=== PATIENT | female | born 1940 | race Caucasian/White ===

== ENCOUNTER → 2016-09-15 | Outpatient (CLI) | payer MEDICARE ==
--- NOTE | 2016-09-15 13:23 | BD ---
EXAMINATION TYPE: MG DEXA axial skeleton. DATE OF EXAM: 09/15/2016 10:54 AM COMPARISON: 09.03.2014 CLINICAL HISTORY: C50.911 OSTEOPENIA Z79.890 POST MENOPAUSAL W/HRT Height: 63.3 Weight: 130 FRAX RISK QUESTIONS: Alcohol (3 or more units per day): NO Family History (Parent hip fracture): NO Glucocorticoids (More than 3mos): NO (Ex: prednisone, prednisolone, methylprednisolone, dexamethasone, and hydrocortisone). History of Fracture in Adulthood: NO Secondary Osteoporosis: NO 1. Type 1 Diabetes: NO 2. Hyperthyroidism: NO 3. Menopause before 45: NO 4. Malnutrition: NO 5. Chronic liver disease: NO Rheumatoid Arthritis: NO Current Tobacco Use: NO RISK FACTORS HISTORY OF: Family History of Osteoporosis: NONE KNOWN Smoke tobacco: NO Drink Alcohol: SOCIAL Active: YES Diet low in dairy products/other sources of calcium: NO Postmenopausal woman: AT 59 YRS OLD Lost more than 2 inches in height since high school: NOT QUITE Adrenal Insufficiency: NO MEDICATIONS: Additional Medications: VITAMINS AND NASAL SPRAY, CALCIUM AND VIT D Additional History: HX OF BREAST CANCER, RT MASTECTOMY EXAM MEASUREMENTS: Bone mineral densitometry was performed using the [employer] System. Bone mineral density as measured about the Lumbar spine is: ----- L1-L4(G/cm2): 1.094 T Score Values are as follows: ----- L1: -1.4 ----- L2: -0.5 ----- L3: 0.3 ----- L4: -1.2 ----- L1-L4: -1.0 Bone mineral density has: Increased 2.6% since study of: 09.03.2014 Bone mineral density about the R hip (g/cm2): 0.906 Bone mineral density about the L hip (g/cm2): 0.955 T Score values are as follows: -----R Neck: -0.9 -----L Neck: -0.6 -----R Intertrochanter: -1.3 -----L Intertrochanter: -0.7 Bone mineral density has: Decreased -4.6% since study of: 09.03.2014 FRAX %'S: 9.2% CHANCE FOR A MAJOR OSTEOPOROTIC FX AND 1.5% FOR A HIP FX.....PROBABILITY OF FX IN 1 0 YRS TIME IMPRESSION: Osteopenia (T Score between -2.5 and -1 as noted by T score values There is slightly increased risk of fracture and the patient may be considered for treatment. Re-Screen 1-2 years. FOR L1 AND L4 OF LUMBAR SPINE AND RT HIP AT INTERTROCHANTER NOTE: T-SCORE=SD OF THE YOUNG ADULT MEAN.
== END | disposition home or self-care (01) ==
LOC: RADBDWWP 10:32
PROVIDERS: ATTEND Internal Medicine Hematology & Oncology
DX: M85.80 Other specified disorders of bone density and structure, unspecified site (principal); C50.911 Malignant neoplasm of unspecified site of right female breast; N95.1 Menopausal and female climacteric states; Z79.890 Hormone replacement therapy
CPT/HCPCS: 77080

== ENCOUNTER → 2017-03-28 | Outpatient (CLI) | payer MEDICARE ==
--- NOTE | 2017-04-04 13:46 | MM ---
Reason for exam: additional evaluation requested from prior study. Last mammogram was performed 1 year ago. History: Patient is postmenopausal, has history of breast cancer at age 71, has history of high-risk lesion on a previous biopsy at age 64, and is nulliparous. Benign MG pre op needle loc LT of the left breast, September 21, 2014. MG discontinued stereo core LT of the left breast, September 09, 2014. Breast lift of the left breast, 2011. Malignant u/S right breast localization of the right breast, May 15, 2011. Malignant u/S right breast localization of the right breast, May 15, 2011. Malignant US RT VAD breast biopsy of the right breast, May 04, 2011. Malignant US RT VAD breast biopsy of the right breast, May 04, 2011. Implant in the right breast, 2010. Mastectomy of the right breast, 2010. Excisional biopsy of the right breast, October 15, 2007. Benign US left CoreBiopsy of the left breast, May 09, 2005. Stereotactic core biopsy of the left breast, October 10, 2004. Benign ultrasound-guided core biopsy of the right breast, October 10, 2004. Benign ultrasound-guided core biopsy of the right breast, October 10, 2004. Benign ultrasound-guided core biopsy of the right breast, October 10, 2004. Benign stereotactic core biopsy of the left breast, December 25, 2003. Benign stereotactic core biopsy of the left breast, December 25, 2003. Benign excisional biopsy of the right breast, December 21, 1997. Taking antineoplastic for 4 years 10 months beginning at age 71. Took other hormone for 2 years. Physical Findings: Nurse did not find any significant physical abnormalities on exam. MG 3D Diag Mammo W/Cad LT CC, MLO, and ML view(s) were taken of the left breast. Prior study comparison: March 27, 2016, left breast MG 3d diag mammo w/cad LT. March 24, 2015, left breast MG diagnostic mammo LT w CAD. The breast tissue is heterogeneously dense. This may lower the sensitivity of mammography. Previous mammotome biopsy in the left breast x 4. Scattered benign round and punctate calcifications. No significant new findings when compared with previous films. These results were verbally communicated with the patient and result sheet given to the patient on 03/28/17. ASSESSMENT: Negative, BI-RAD 1 RECOMMENDATION: Follow-up diagnostic mammogram of the left breast in 1 year.
== END | disposition home or self-care (01) ==
LOC: RADMAMWWP 10:58
PROVIDERS: ATTEND Surgery
DX: Z08 Encounter for follow-up examination after completed treatment for malignant neoplasm (principal); Z85.3 Personal history of malignant neoplasm of breast
CPT/HCPCS: G0206; G0279

== ENCOUNTER → 2018-04-03 | Outpatient (CLI) | payer MEDICARE ==
--- NOTE | 2018-04-03 11:50 | MM ---
Reason for exam: additional evaluation requested from prior study. Last mammogram was performed 1 year ago. History: Patient is postmenopausal, has history of breast cancer at age 71, has history of high-risk lesion on a previous biopsy at age 64, and is nulliparous. Benign MG pre op needle loc LT of the left breast, September 21, 2014. MG discontinued stereo core LT of the left breast, September 09, 2014. Breast lift of the left breast, 2011. Malignant u/S right breast localization of the right breast, May 15, 2011. Malignant u/S right breast localization of the right breast, May 15, 2011. Malignant US RT VAD breast biopsy of the right breast, May 04, 2011. Malignant US RT VAD breast biopsy of the right breast, May 04, 2011. Implant in the right breast, 2010. Mastectomy of the right breast, 2010. Excisional biopsy of the right breast, October 15, 2007. Benign US left CoreBiopsy of the left breast, May 09, 2005. Stereotactic core biopsy of the left breast, October 10, 2004. Benign ultrasound-guided core biopsy of the right breast, October 10, 2004. Benign ultrasound-guided core biopsy of the right breast, October 10, 2004. Benign ultrasound-guided core biopsy of the right breast, October 10, 2004. Benign stereotactic core biopsy of the left breast, December 25, 2003. Benign stereotactic core biopsy of the left breast, December 25, 2003. Benign excisional biopsy of the right breast, December 21, 1997. Taking antineoplastic for 4 years 10 months beginning at age 71. Took other hormone for 2 years. Physical Findings: Nurse did not find any significant physical abnormalities on exam. MG 3D Diag Mammo W/Cad LT CC, MLO, and XCCL view(s) were taken of the left breast. Prior study comparison: March 28, 2017, left breast MG 3d diag mammo w/cad LT. March 27, 2016, left breast MG 3d diag mammo w/cad LT. The breast tissue is extremely dense which could obscure a lesion on mammography. There are benign appearing round calcifications in the left breast. Previous mammotome biopsy in the left breast x 4. There is no discrete abnormality. These results were verbally communicated with the patient and result sheet given to the patient on 04/03/18. ASSESSMENT: Benign, BI-RAD 2 RECOMMENDATION: Follow-up diagnostic mammogram of the left breast in 1 year.
== END | disposition home or self-care (01) ==
LOC: RADMAMWWP 10:58
PROVIDERS: ATTEND Surgery
DX: Z08 Encounter for follow-up examination after completed treatment for malignant neoplasm (principal); Z85.3 Personal history of malignant neoplasm of breast
CPT/HCPCS: 77065; G0279; 77061

== ENCOUNTER → 2019-04-09 | Outpatient (CLI) | payer MEDICARE ==
--- NOTE | 2019-04-09 16:33 | BD ---
EXAMINATION TYPE: Axial Bone Density DATE OF EXAM: 04/09/2019 COMPARISON: 2017 CLINICAL HISTORY: disorder of bone Height: 5'4 Weight: 128 FRAX RISK QUESTIONS: Secondary Osteoporosis: RISK FACTORS HISTORY OF: Postmenopausal woman: y MEDICATIONS: Additional Medications: eyes, nose Additional History: breast cancer, EXAM MEASUREMENTS: Bone mineral densitometry was performed using the [employer] System. Bone mineral density as measured about the Lumbar spine is: ----- L1-L4(G/cm2): 1.139 T Score Values are as follows: ----- L2: -0.4 ----- L3: 0.4 ----- L4: -0.3 ----- L1-L4: -0.3 Bone mineral density has: Increased 4.4% since study of: 09/15/2016 Bone mineral density about the R hip (g/cm2): 0.923 Bone mineral density about the L hip (g/cm2): 0.986 T Score values are as follows: -----R Neck: -0.8 -----L Neck: -0.4 -----R Total: -0.8 -----L Total: -0.5 Bone mineral density has: Decreased -0.6% since study of: 09/15/2016 IMPRESSION: Normal (Values between +1 and -1 indicate normal bone mass). Consider repeating this study in 5 year s or sooner if there is some new clinical indication. NOTE: T-SCORE=SD OF THE YOUNG ADULT MEAN.
== END | disposition home or self-care (01) ==
LOC: RADBDWWP 10:11
PROVIDERS: ATTEND Obstetrics & Gynecology
DX: M89.9 Disorder of bone, unspecified (principal)
CPT/HCPCS: 77080

== ENCOUNTER → 2019-04-23 | Outpatient (CLI) | payer MEDICARE ==
--- NOTE | 2019-04-23 14:17 | MM ---
Reason for exam: additional evaluation requested from prior study. Last mammogram was performed 1 year and 1 month ago. History: Patient is postmenopausal, has history of breast cancer at age 71, has history of high-risk lesion on a previous biopsy at age 64, and is nulliparous. Benign MG pre op needle loc LT of the left breast, September 21, 2014. MG discontinued stereo core LT of the left breast, September 09, 2014. Breast lift of the left breast, 2011. Malignant u/S right breast localization of the right breast, May 15, 2011. Malignant u/S right breast localization of the right breast, May 15, 2011. Malignant US RT VAD breast biopsy of the right breast, May 04, 2011. Malignant US RT VAD breast biopsy of the right breast, May 04, 2011. Implant in the right breast, 2010. Mastectomy of the right breast, 2010. Excisional biopsy of the right breast, October 15, 2007. Benign US left CoreBiopsy of the left breast, May 09, 2005. Stereotactic core biopsy of the left breast, October 10, 2004. Benign ultrasound-guided core biopsy of the right breast, October 10, 2004. Benign ultrasound-guided core biopsy of the right breast, October 10, 2004. Benign ultrasound-guided core biopsy of the right breast, October 10, 2004. Benign stereotactic core biopsy of the left breast, December 25, 2003. Benign stereotactic core biopsy of the left breast, December 25, 2003. Benign excisional biopsy of the right breast, December 21, 1997. Took hormonal contraceptives for 15 years. Taking antineoplastic for 4 years 10 months beginning at age 71. Took other hormone for 2 years. Physical Findings: Nurse did not find any significant physical abnormalities on exam. MG 3D Diag Mammo W/Cad LT CC, MLO, and LM view(s) were taken of the left breast. Prior study comparison: April 03, 2018, left breast MG 3d diag mammo w/cad LT. March 28, 2017, left breast MG 3d diag mammo w/cad LT. The breast tissue is heterogeneously dense. This may lower the sensitivity of mammography. Benign appearing calcifications in the left breast. No suspicious abnormality. Multiple left biopsy markers and post surgical change. No significant new findings when compared with previous films. These results were verbally communicated with the patient and result sheet given to the patient on 04/23/19. ASSESSMENT: Benign, BI-RAD 2 RECOMMENDATION: Follow-up diagnostic mammogram of the left breast in 1 year.
== END | disposition home or self-care (01) ==
LOC: RADMAMWWP 12:51
PROVIDERS: ATTEND Student in an Organized Health Care Education/Training Program
DX: Z08 Encounter for follow-up examination after completed treatment for malignant neoplasm (principal); Z85.3 Personal history of malignant neoplasm of breast
CPT/HCPCS: 77065; G0279; 77061

== ENCOUNTER → 2020-05-28 | Outpatient (CLI) | payer MEDICARE ==
--- NOTE | 2020-05-28 11:53 | MM ---
Reason for exam: additional evaluation requested from prior study. Last mammogram was performed 1 year and 1 month ago. History: Patient is postmenopausal, has history of breast cancer at age 71, has history of high-risk lesion on a previous biopsy at age 64, and is nulliparous. Benign MG pre op needle loc LT of the left breast, September 21, 2014. MG discontinued stereo core LT of the left breast, September 09, 2014. Breast lift of the left breast, 2011. Malignant u/S right breast localization of the right breast, May 15, 2011. Malignant u/S right breast localization of the right breast, May 15, 2011. Malignant US RT VAD breast biopsy of the right breast, May 04, 2011. Malignant US RT VAD breast biopsy of the right breast, May 04, 2011. Implant in the right breast, 2010. Mastectomy of the right breast, 2010. Excisional biopsy of the right breast, October 15, 2007. Benign US left CoreBiopsy of the left breast, May 09, 2005. Stereotactic core biopsy of the left breast, October 10, 2004. Benign ultrasound-guided core biopsy of the right breast, October 10, 2004. Benign ultrasound-guided core biopsy of the right breast, October 10, 2004. Benign ultrasound-guided core biopsy of the right breast, October 10, 2004. Benign stereotactic core biopsy of the left breast, December 25, 2003. Benign stereotactic core biopsy of the left breast, December 25, 2003. Benign excisional biopsy of the right breast, December 21, 1997. Took hormonal contraceptives for 15 years. Taking antineoplastic for 4 years 10 months beginning at age 71. Took other hormone for 2 years. Physical Findings: Nurse did not find any significant physical abnormalities on exam. MG 3D Diag Mammo W/Cad LT CC, MLO, and XCCL view(s) were taken of the left breast. Prior study comparison: April 23, 2019, left breast MG 3d diag mammo w/cad LT. April 03, 2018, left breast MG 3d diag mammo w/cad LT. The breast tissue is extremely dense which could obscure a lesion on mammography. Finding: There are extensive round, diffuse/scattered calcifications in the left breast. Previous mammotome biopsy in the left breast x 3. No significant changes in finding since April 23, 2019 and April 03, 2018. These results were verbally communicated with the patient and result sheet given to the patient on 05/28/20. ASSESSMENT: Benign, BI-RAD 2 RECOMMENDATION: Follow-up diagnostic mammogram of the left breast in 1 year.
== END | disposition home or self-care (01) ==
LOC: RADMAMWWP 10:50
PROVIDERS: ATTEND Student in an Organized Health Care Education/Training Program
DX: Z08 Encounter for follow-up examination after completed treatment for malignant neoplasm (principal); Z85.3 Personal history of malignant neoplasm of breast
CPT/HCPCS: 77065; G0279; 77061

== ENCOUNTER → 2021-05-31 | Outpatient (CLI) | payer MEDICARE ==
--- NOTE | 2021-05-31 13:35 | MM ---
Reason for exam: additional evaluation requested from prior study. Last mammogram was performed 1 year ago. History: Patient is postmenopausal, has history of breast cancer at age 71, has history of high-risk lesion on a previous biopsy at age 64, and is nulliparous. Benign MG pre op needle loc LT of the left breast, September 21, 2014. MG discontinued stereo core LT of the left breast, September 09, 2014. Breast lift of the left breast, 2011. Malignant u/S right breast localization of the right breast, May 15, 2011. Malignant u/S right breast localization of the right breast, May 15, 2011. Malignant US RT VAD breast biopsy of the right breast, May 04, 2011. Malignant US RT VAD breast biopsy of the right breast, May 04, 2011. Implant in the right breast, 2010. Mastectomy of the right breast, 2010. Excisional biopsy of the right breast, October 15, 2007. Benign US left CoreBiopsy of the left breast, May 09, 2005. Stereotactic core biopsy of the left breast, October 10, 2004. Benign ultrasound-guided core biopsy of the right breast, October 10, 2004. Benign ultrasound-guided core biopsy of the right breast, October 10, 2004. Benign ultrasound-guided core biopsy of the right breast, October 10, 2004. Benign stereotactic core biopsy of the left breast, December 25, 2003. Benign stereotactic core biopsy of the left breast, December 25, 2003. Benign excisional biopsy of the right breast, December 21, 1997. Took hormonal contraceptives for 15 years. Taking antineoplastic for 4 years 10 months beginning at age 71. Took other hormone for 2 years. Physical Findings: Nurse did not find any significant physical abnormalities on exam. MG 3D Diag Mammo W/Cad LT CC and MLO view(s) were taken of the left breast. Prior study comparison: May 28, 2020, left breast MG 3d diag mammo w/cad LT. April 23, 2019, left breast MG 3d diag mammo w/cad LT. The breast tissue is heterogeneously dense. This may lower the sensitivity of mammography. Previous mammotome biopsy in the left breast. Stable round and punctate calcifications and vascular calcifications. No significant new findings when compared with previous films. These results were verbally communicated with the patient and result sheet given to the patient on 05/31/21. ASSESSMENT: Benign, BI-RAD 2 RECOMMENDATION: Follow-up diagnostic mammogram of the left breast in 1 year.
== END | disposition home or self-care (01) ==
LOC: RADMAMWWP 12:50
PROVIDERS: ATTEND Obstetrics & Gynecology
DX: R92.1 Mammographic calcification found on diagnostic imaging of breast (principal); R92.2 Inconclusive mammogram; Z85.3 Personal history of malignant neoplasm of breast; Z78.0 Asymptomatic menopausal state
CPT/HCPCS: 77065; G0279; 77061

== ENCOUNTER → 2022-06-06 | Outpatient (CLI) | payer MEDICARE, OTHER ==
--- NOTE | 2022-06-06 11:31 | MM ---
Reason for Exam: Hx of breast cancer, mastectomy. Last screening mammogram was performed 12 month(s) ago. Patient History: Menarche at age 15. Patient has no children. Postmenopausal. Breast cancer, right, age 71. Patient used Hormonal Contraceptives for 15 years. 10/15/2007, Excisional Biopsy on the Right side. 2010, Mastectomy on the Right side. 09/21/2014, Benign Core Biopsy on the left side. 05/15/2011, Malignant Excisional Biopsy on the right side. 05/15/2011, Malignant Excisional Biopsy on the right side. 05/04/2011, Malignant Core Biopsy on the right side. 05/04/2011, Malignant Core Biopsy on the right side. 05/09/2005, Benign Core Biopsy on the left side. 10/10/2004, Benign Stereotactic Core Biopsy on the left side. 10/10/2004, Benign Ultrasound-Guided Core Biopsy on the right side. 10/10/2004, Benign Ultrasound-Guided Core Biopsy on the right side. 10/10/2004, Benign Ultrasound-Guided Core Biopsy on the right side. 12/25/2003, Benign Stereotactic Core Biopsy on the left side. 12/25/2003, Benign Stereotactic Core Biopsy on the left side. 12/21/1997, Benign Excisional Biopsy on the right side. 09/09/2014, MG discontinued stereo core LT on the left side. 2010, Implant on the right side. Prior Study Comparison: 04/23/2019 Left Diagnostic Mammogram, [facility]. 05/28/2020 Left Diagnostic Mammogram, [facility]. 05/31/2021 Left Diagnostic Mammogram, [facility]. Tissue Density: Left: The breast tissue is heterogeneously dense. This may lower the sensitivity of mammography. Findings: Analyzed By CAD. Previous mammotome biopsy left breast. Stable round and punctate calcifications thoracic calcifications redemonstrated. No significant change from prior exams. Overall Assessment: Benign, BI-RAD 2 Management: Screening Mammogram of the left breast in 1 year. A clinical breast exam by your physician is recommended on an annual basis and results should be correlated with mammographic findings. This exam should not preclude additional follow-up of suspicious palpable abnormalities. Results were given to the patient verbally at the time of exam. Electronically signed and approved by: Tylor Bauer D.O.
== END | disposition home or self-care (01) ==
LOC: RADMAMWWP 10:48
PROVIDERS: ATTEND Obstetrics & Gynecology
DX: Z85.3 Personal history of malignant neoplasm of breast (principal); Z78.0 Asymptomatic menopausal state; Z90.11 Acquired absence of right breast and nipple
CPT/HCPCS: 77065; G0279; 77061

== ENCOUNTER → 2023-06-07 | Outpatient (CLI) | payer MEDICARE, OTHER ==
--- NOTE | 2023-06-12 19:16 | MM ---
Reason for Exam: Screening (asymptomatic). Last screening mammogram was performed 12 month(s) ago. Patient History: Menarche at age 15. Patient has no children. Postmenopausal. Breast cancer, right, age 71. Patient used Hormonal Contraceptives for 15 years. 10/15/2007, Excisional Biopsy on the Right side. 2010, Mastectomy on the Right side. 09/21/2014, Benign Core Biopsy on the left side. 05/15/2011, Malignant Excisional Biopsy on the right side. 05/15/2011, Malignant Excisional Biopsy on the right side. 05/04/2011, Malignant Core Biopsy on the right side. 05/04/2011, Malignant Core Biopsy on the right side. 05/09/2005, Benign Core Biopsy on the left side. 10/10/2004, Benign Stereotactic Core Biopsy on the left side. 10/10/2004, Benign Ultrasound-Guided Core Biopsy on the right side. 10/10/2004, Benign Ultrasound-Guided Core Biopsy on the right side. 10/10/2004, Benign Ultrasound-Guided Core Biopsy on the right side. 12/25/2003, Benign Stereotactic Core Biopsy on the left side. 12/25/2003, Benign Stereotactic Core Biopsy on the left side. 12/21/1997, Benign Excisional Biopsy on the right side. 09/09/2014, MG discontinued stereo core LT on the left side. 2010, Implant on the right side. Prior Study Comparison: 05/28/2020 Left Diagnostic Mammogram, [facility]. 05/31/2021 Left Diagnostic Mammogram, [facility]. 06/06/2022 Left MG 3D diag mammo w/cad LT, [facility]. Tissue Density: Left: The breast tissue is extremely dense which could obscure a lesion on mammography. Findings: At least 4 microvascular clips related to prior biopsies. Unchanged scattered rounded and other benign calcifications. There is no suspicious group of microcalcifications or new suspicious mass in the left breast. Overall Assessment: Benign, BI-RAD 2 Management: Screening Mammogram of the left breast in 1 year. Given the extremely dense breast tissue and patient's history, consider supplementary screening with breast ultrasound. Patient should continue monthly self-breast exams. A clinical breast exam by your physician is recommended on an annual basis. This exam should not preclude additional follow-up of suspicious palpable abnormalities. Electronically signed and approved by: Miguel Angel Santamaria M.D. Radiologist
== END | disposition home or self-care (01) ==
LOC: RADMAMWWP 12:48
PROVIDERS: ATTEND Obstetrics & Gynecology
DX: Z12.31 Encounter for screening mammogram for malignant neoplasm of breast (principal); Z85.3 Personal history of malignant neoplasm of breast; Z78.0 Asymptomatic menopausal state
CPT/HCPCS: 77067

== ENCOUNTER → 2024-06-09 | Outpatient (CLI) | payer MEDICARE, OTHER ==
--- NOTE | 2024-06-12 08:40 | MM ---
Reason for Exam: Screening (asymptomatic). Last screening mammogram was performed 12 month(s) ago. Patient History: Menarche at age 15. Patient has no children. Postmenopausal. Breast cancer, right, age 71. Patient used Hormonal Contraceptives for 15 years. 10/15/2007, Excisional Biopsy on the Right side. 2010, Mastectomy on the Right side. 09/21/2014, Benign Core Biopsy on the left side. 05/15/2011, Malignant Excisional Biopsy on the right side. 05/15/2011, Malignant Excisional Biopsy on the right side. 05/04/2011, Malignant Core Biopsy on the right side. 05/04/2011, Malignant Core Biopsy on the right side. 05/09/2005, Benign Core Biopsy on the left side. 10/10/2004, Benign Stereotactic Core Biopsy on the left side. 10/10/2004, Benign Ultrasound-Guided Core Biopsy on the right side. 10/10/2004, Benign Ultrasound-Guided Core Biopsy on the right side. 10/10/2004, Benign Ultrasound-Guided Core Biopsy on the right side. 12/25/2003, Benign Stereotactic Core Biopsy on the left side. 12/25/2003, Benign Stereotactic Core Biopsy on the left side. 12/21/1997, Benign Excisional Biopsy on the right side. 09/09/2014, MG discontinued stereo core LT on the left side. 2010, Implant on the right side. Prior Study Comparison: 05/31/2021 Left Diagnostic Mammogram, [facility]. 06/06/2022 Left MG 3D diag mammo w/cad LT, [facility]. 06/07/2023 Left MG 3D scr mahesh unilateral w/cad., [facility]. Tissue Density: Left: The breasts are heterogeneously dense, which may obscure small masses. Findings: Numerous benign round and punctate calcifications are redemonstrated as well as a few benign vascular calcifications. 4 microclips from prior biopsies. No significant change from prior exams. Overall Assessment: Benign, BI-RAD 2 Management: Screening Mammogram of the left breast in 1 year. Patient should continue monthly self-breast exams. A clinical breast exam by your physician is recommended on an annual basis. This exam should not preclude additional follow-up of suspicious palpable abnormalities. [facility], , 06/12/2024 8:37 AM. Electronically signed and approved by: Miguel Angel Santamaria M.D. Radiologist
== END | disposition home or self-care (01) ==
LOC: RADMAMWWP 10:57
PROVIDERS: ATTEND Family Medicine
DX: Z12.31 Encounter for screening mammogram for malignant neoplasm of breast (principal); R92.333 Mammographic heterogeneous density, bilateral breasts; Z78.0 Asymptomatic menopausal state; Z85.3 Personal history of malignant neoplasm of breast
CPT/HCPCS: 77067

== ENCOUNTER → 2024-09-19 | Outpatient (CLI) | payer MEDICARE, OTHER ==
--- NOTE | 2024-09-19 14:09 | BD ---
EXAMINATION TYPE: Axial Bone Density DATE OF EXAM: 09/19/2024 CLINICAL HISTORY: 84 years old Female. ICD-10 CODE: R92.8 ABN MAMMO , Additional History: Height: 5 ft 3 4 in Weight: 129 FRAX RISK QUESTIONS: Alcohol (3 or more units per day): no Family History (Parent hip fracture): no Glucocorticoids (More than 3mos): no (Ex: prednisone, prednisolone, methylprednisolone, dexamethasone, and hydrocortisone). History of Fracture in Adulthood: no Secondary Osteoporosis: 1. Type 1 Diabetes: no 2. Hyperthyroidism: no 3. Menopause before 45: no 4. Malnutrition: no 5. Chronic liver disease: no Rheumatoid Arthritis: no Current Tobacco Use: no RISK FACTORS HISTORY OF: Surgery to Spine/Hip(right/left)/Wrist (right/left): no MEDICATIONS: Thyroid Medications: none Osteoporosis Medications: none EXAM MEASUREMENTS: Bone mineral densitometry was performed using the [employer]. Bone mineral density as measured about the Lumbar spine is: ----- L1-L4(G/cm2): 1.163 T Score Values are as follows: ----- L1: -1.3 ----- L2: 0.4 ----- L3: 0.4 ----- L4: -0.3 ----- L1-L4: -0.1 Z Score Values are as follows: ----- L1: 0.8 ----- L2: 2.5 ----- L3: 2.5 ----- L4: 1.8 ----- L1-L4: 2.0 Bone mineral density has: increased 2.8 % since study of: 2019 Bone mineral density about the R hip (g/cm2): 0.864 Bone mineral density about the L hip (g/cm2): 0.929 T Score values are as follows: -----R Neck: -1.2 -----L Neck: -0.8 -----R Total: -1.1 -----L Total: -0.8 Z Score values are as follows: -----R Neck: 1.2 -----L Neck: 1.7 -----R Total: 1.2 -----L Total: 1.5 Bone mineral density has: decreased -4.4 % since study of: 2019 FRAX%s: The graph provided illustrates a 11.7 % chance for a major osteoporotic fx and a 2.9 % chance for the hips probability for fx in 10 years time. IMPRESSION: Osteopenia (T Score between -2.5 and -1). There is slightly increased risk of fracture and the patient may be considered for treatment. Re-Screen 2-5 years. NOTE: T-SCORE=SD OF THE YOUNG ADULT MEAN. [facility], , 09/19/2024 2:07 PM
== END | disposition home or self-care (01) ==
LOC: RADBDWWP 12:26
PROVIDERS: ATTEND Family Medicine
DX: N95.1 Menopausal and female climacteric states (principal); M85.89 Other specified disorders of bone density and structure, multiple sites
CPT/HCPCS: 77080